=== PATIENT | female | born 1975 | race African-American/Black ===

== ENCOUNTER 2018-12-25 16:41 | Emergency (ER) | payer MEDICAID ==
[~2018-12-25] VITALS: Ht 396.2 cm; Wt 100.0 kg
[2018-12-25] MEDS ORDERED: LIDOCAINE 1%/EPI 1:100,000 10 ML VIAL IJ ONE (19:15)
[2018-12-25] MEDS ORDERED: BACITRACIN ZINC OINT UDPKT TOP ONE (19:15)
[2018-12-25] MEDS ORDERED: HYDROCODONE/ACETAMINOPHEN 5/325MG TABLET PO ONE (19:15)
[2018-12-25] MEDS ORDERED: LIDOCAINE HCL/EPINEPHRINE 1%-EPI 1:100,000 20 ML VIAL MC ONE (19:30)
[2018-12-25] MEDS ORDERED: BACITRACIN 15GM TUBE TOP SCH (19:30)
[2018-12-25 22:33] VITALS: BP 138/77
== END 2018-12-25 22:39 | disposition home or self-care (01) ==
LOC: ER 16:41
DX: L02.412 Cutaneous abscess of left axilla (principal); L73.2 Hidradenitis suppurativa
CPT/HCPCS: 10060; 99283; J3490; Z7610; 12001

== ENCOUNTER 2018-12-27 08:00 | Emergency (ER) | payer MEDICAID ==
[~2018-12-27] VITALS: Ht 167.6 cm; Wt 100.0 kg
[2018-12-27 08:07] VITALS: BP 120/79
== END 2018-12-27 10:10 | disposition home or self-care (01) ==
LOC: ER 08:02
DX: L02.412 Cutaneous abscess of left axilla (principal)
CPT/HCPCS: 99281

== ENCOUNTER 2023-07-29 17:07 | Emergency (ER) | payer SELFPAY ==
[~2023-07-29] VITALS: Ht 167.6 cm; Wt 92.0 kg
[2023-07-29 17:26] VITALS: TEMP 98.9; O2SAT 98
[2023-07-29] MEDS: TETANUS, DIPHTHERIA, PERTUSSIS VAC/PF 0.5ML (>10YR OLD) IM ONE (21:42)
[2023-07-29 21:43] VITALS: BP 168/89; PULSE 99; RESP 16
[2023-07-29] MEDS: BACITRACIN ZINC OINT UDPKT TOP ONE (21:43)
[2023-07-29] MEDS: KETOROLAC 30MG/ML VIAL IM ONE (21:43)
[2023-07-29] MEDS: LIDOCAINE HCL/PF 1% 10 MG/ML 5ML VIAL INFIL ONE (21:43)
[2023-07-29] MEDS ORDERED: CEPH500C2 MT (21:52)
== END 2023-07-29 22:07 | disposition home or self-care (01) ==
LOC: ER 17:07
DX: L03.031 Cellulitis of right toe (principal)
CPT/HCPCS: 81025; 73660; 90715; 10060; 90471; 96372; 99284; J1885; J3490; Z7610 ×4

== ENCOUNTER 2024-01-29 13:02 | Emergency (ER) | payer SELFPAY ==
[~2024-01-29] VITALS: Ht 165.1 cm; Wt 88.5 kg
[~2024-01-29 13:02] MED LIST: CEPH500C2 MT
[2024-01-29 13:07] VITALS: TEMP 98.9; O2SAT 98
[2024-01-29] MEDS ORDERED: SULF1TAB48 MT (15:21)
[2024-01-29] MEDS ORDERED: CEPH500C2 MT (15:21)
[2024-01-29] MEDS ORDERED: IBUP-2029 MT (15:21)
[2024-01-29 15:45] VITALS: BP 148/85; PULSE 98; RESP 16; O2SAT 98
[2024-01-29] MEDS: IBUPROFEN 600MG TABLET PO ONE (15:46)
== END 2024-01-29 15:49 | disposition home or self-care (01) ==
LOC: ER 13:02
DX: L02.411 Cutaneous abscess of right axilla (principal); I10 Essential (primary) hypertension
CPT/HCPCS: 10060; 99283

== ENCOUNTER 2024-03-27 08:16 | Emergency (ER) | payer SELFPAY ==
[~2024-03-27] VITALS: Ht 165.1 cm; Wt 88.0 kg
[~2024-03-27 08:16] MED LIST changes: +IBUP-2029 MT; +SULF1TAB48 MT
[2024-03-27 08:22] VITALS: O2SAT 100
[2024-03-27] MEDS ORDERED: LIDOCAINE HCL 1% 20ML VIAL INFIL ONE (11:00)
[2024-03-27] MEDS: IBUPROFEN 600MG TABLET PO ONE (11:23)
[2024-03-27] MEDS ORDERED: SULF1TAB48 MT (11:58)
[2024-03-27 12:32] VITALS: BP 156/78; PULSE 78; RESP 18; TEMP 37.05852; O2SAT 98
[2024-03-27 12:35] LABS: CLARITY URINE CLEAR (CLEAR); COLOR URINE YELLOW (YELLOW); GLUCOSE URINE 3+ (NEGATIVE); KETONES URINE TRACE (NEGATIVE); LEUKOCYTE ESTERASE URINE NEGATIVE (NEGATIVE); NITRITE URINE NEGATIVE (NEGATIVE); OCCULT BLOOD URINE 2+ (NEGATIVE); PROTEIN URINE TRACE (NEGATIVE); SPECIFIC GRAVITY URINE 1.039 (1.005-1.030)
[2024-03-27 12:51] LABS: BACTERIA URINE FEW; RBC URINE 0-2 /hpf (0-2); SQUAMOUS EPITHELIAL CELL URINE 1+ /lpf (RARE/1+); URIC ACID CRYSTALS URINE 1+ /lpf; WBC URINE 0-2 /hpf (0-2); YEAST URINE NONE SEEN
== END 2024-03-27 12:33 | disposition home or self-care (01) ==
LOC: ER 08:16
DX: N75.1 Abscess of Bartholin's gland (principal); I10 Essential (primary) hypertension
CPT/HCPCS: 81003; 87070; 87205; 87077; 99284; J3490; Z7610

== ENCOUNTER 2024-05-28 08:18 | Emergency (ER) | payer MEDICAID ==
[~2024-05-28] VITALS: Ht 167.6 cm; Wt 60.0 kg
[2024-05-28 08:26] VITALS: O2SAT 99
[2024-05-28] MEDS: BACITRACIN ZINC OINT UDPKT TOP ONE (09:35)
[2024-05-28] MEDS: LIDOCAINE HCL/PF 1% 10 MG/ML 5ML VIAL INFIL ONE (09:35)
[2024-05-28 09:54] VITALS: BP 172/97; PULSE 88; RESP 18; TEMP 36.7; O2SAT 99
[2024-05-28] MEDS: KETOROLAC 30MG/ML VIAL IM ONE (09:54)
[2024-05-28] MEDS ORDERED: TOPUD MT (10:24)
[2024-05-28] MEDS ORDERED: KETO10TA2 MT (10:24)
[2024-05-28] MEDS ORDERED: CLIN60LO6 TP (10:53)
[2024-05-28] MEDS ORDERED: CEPH500T MT (10:53)
[2024-05-28] MEDS ORDERED: SULF1TAB48 MT (10:53)
== END 2024-05-28 11:03 | disposition home or self-care (01) ==
LOC: ER 08:18
DX: L73.2 Hidradenitis suppurativa (principal); I10 Essential (primary) hypertension; Z79.899 Other long term (current) drug therapy
CPT/HCPCS: 99285; 76882; 96372; J1885; J2003

== ENCOUNTER 2024-09-13 08:25 | Emergency (ER) | payer MEDICAID ==
[~2024-09-13] VITALS: Ht 167.6 cm; Wt 85.0 kg
[~2024-09-13 08:25] MED LIST changes: +CEPH500T MT; +CLIN60LO6 TP; +KETO10TA2 MT; +TOPUD MT
[2024-09-13 08:35] VITALS: O2SAT 100
[2024-09-13] MEDS: TETRACAINE 0.5% OPHTH DROPS 4ML LEFTEYE ONE (09:24)
[2024-09-13] MEDS: FLUORESCEIN SODIUM 1MG/STRIP LEFTEYE ONE (09:24)
[2024-09-13] MEDS ORDERED: [UNRECOGNIZED DRUG - CODE] LEFTEYE (10:11)
[2024-09-13] MEDS ORDERED: MAXOS LEFTEYE (10:11)
[2024-09-13 10:24] VITALS: BP 172/90; PULSE 76; RESP 15; TEMP 36.9; O2SAT 99
== END 2024-09-13 10:28 | disposition home or self-care (01) ==
LOC: ER 08:25
DX: H20.9 Unspecified iridocyclitis (principal); H10.89 Other conjunctivitis; I10 Essential (primary) hypertension
CPT/HCPCS: 81025; 99283; Z7610 ×2